=== PATIENT | female | born 1955 | race Asian ===

== ENCOUNTER 2018-08-23 | Emergency (ER) | payer SELFPAY ==
[~2018-08-23] VITALS: Ht 160 cm; Wt 59.0 kg
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
[2018-08-23 00:29] VITALS: BP 144/84
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
--- NOTE | 2018-08-23 00:50 | NUR ---
Medicated as ordered, tolerated well. Visitors at bedside.
[2018-08-23 01:06] LABS: APPEARANCE,URINE SLIGHTLY CLOUDY; BILIRUBIN, URINE NEGATIVE (NEGATIVE); COLOR,URINE PALE YELLOW; GLUCOSE, URINE (UA) 1+ (NEGATIVE); KETONES,URINE NEGATIVE (NEGATIVE); LEUKOCYTE ESTERASE ,URINE NEGATIVE (NEGATIVE); NITRITE,URINE NEGATIVE (NEGATIVE); PH,URINE 6 (4.5-8.0); PROTEIN,URINE 1+ (NEGATIVE); UROBILINOGEN,URINE NORMAL MG/DL (0.0-1.0)
--- NOTE | 2018-08-23 01:15 | NUR ---
Patient able to ambulate to restroom without assistance, with steady gait-no pain.
[2018-08-23] MEDS ORDERED: IBUPROFEN600 MG ORAL (03:54)
[2018-08-23 04:10] VITALS: BP 115/73
--- NOTE | 2018-08-23 04:10 | NUR ---
ED Nurse Note: pt cleared to be d/c per ERMD pt discharge and aftercare instruction provided w/ prescription, pt education done via discussion and handout, pt advised to follow up with pcp or return to ed if changes in condition, pt verbalized understanding and agrees with plan, vss, ambulatory w/ steady gait, vss, left w/ all belongings, accompanied by , pt called taxi.
--- NOTE | 2018-08-23 09:12 | Diagnostic Imaging Report ---
Indication: Abdominal pain Technique: Continuous helical transaxial imaging of the abdomen and pelvis was obtained from the lung bases to the pubic symphysis. No intravenous contrast was administered. Coronal 2-D reformats were also obtained. Automatic Exposure Control was utilized. Total Dose length Product (DLP): 862.[address] Dose Index Volume (CTDIvol): 16.14 mGy Comparison: none Findings: Mild posterior dependent atelectasis noted. Noncontrast evaluation of solid organs is grossly unremarkable. There is no hydronephrosis or renal stones. Bowel gas pattern appears nonobstructed. There is a moderate amount of fecal retention in the colon. The appendix is normal. Uterus noted. There is no free fluid or free air. IMPRESSION: No acute findings identified. [facility] has communicated the preliminary results to the Emergency Department. Their findings are largely concordant with this report. Incidental findings as above The CT scanner at [facility] is accredited by the [employer] and the scans are performed using dose optimization techniques as appropriate to a performed exam including Automatic Exposure control.
== END 2018-08-23 04:10 | disposition home or self-care (01) ==
LOC: EDBD → EMR 01:07
DX: R10.9 Unspecified abdominal pain (principal); V43.62XA Car passenger injured in collision with other type car in traffic accident, initial encounter; Y92.410 Unspecified street and highway as the place of occurrence of the external cause
CPT/HCPCS: 74176; 81003; 99284